=== PATIENT | male | born 1955 | race Caucasian/White ===

== ENCOUNTER → 2025-01-16 10:59 | Outpatient (REF) | payer MEDICARE, BC, SELFPAY ==
[2025-01-16 11:37] LABS: % Eosinophils 4.7 % (0-6); % Immature Granulocytes 0.7 % (0-0.5); % Lymphocytes 31.8 % (20.5-51.1); % Monocytes 7.7 % (1.7-9.3); % Neutrophils 54.1 % (42.2-75.2); Absolute Basophils 0.1 10^3/uL (0-0.2); Absolute Eosinophils 0.3 10^3/uL (0-0.7); Absolute Lymphocytes 1.9 10^3/uL (1.2-3.4); Absolute Monocytes 0.5 10^3/uL (0.1-0.6); Absolute Neutrophils 3.3 10^3/uL (1.4-6.5); Hematocrit 46.5 % (39.0-52.0); Hemoglobin 16.4 g/dL (13.0-18.0); Mean Corp Hgb Conc. 35.3 g/dL (33.0-37.0); Mean Corpuscular Hgb 31.4 pg (27.0-31.0); Mean Corpuscular Volume 89.1 fL (80.0-94.0); Mean Platelet Volume 9.7 fL (7.4-10.4); Nucleated Red Blood Cells % 0 % (-); Platelet Count 229 10^3/uL (130-400); Red Blood Cell Count 5.22 10^6/uL (4.70-6.10); Red Cell Dist. Width 13.4 % (11.5-14.5)
[2025-01-16 11:46] LABS: ALT (SGPT) 25 U/L (0-50); AST (SGOT) 21 U/L (17-59); Albumin 4.5 g/dl (3.5-5.0); Alkaline Phosphatase 61 U/L (38-126); Blood Urea Nitrogen 16 mg/dl (9-20); Calcium 9.8 mg/dl (8.4-10.2); Carbon Dioxide 24 mmol/L (22-30); Chloride 111 mmol/L (98-107); Glucose 96 mg/dl (70-99); Magnesium 2.1 mg/dl (1.6-2.3); Potassium 4.6 mmol/L (3.5-5.1); Sodium 142 mmol/L (135-145); Total Bilirubin 0.8 mg/dl (0.2-1.3); Total Protein 7.5 g/dl (6.3-8.2); eGFR > 60.00
[2025-01-16 11:49] LABS: INR 1.05
== END ==
LOC: SDSPAT 10:59
PROVIDERS: ATTENDING PHYSICIAN Internal Medicine Cardiovascular Disease; FAMILY PHYSICIAN Family Medicine; OTHER PHYSICIAN Internal Medicine Cardiovascular Disease
DX: I48.91 Unspecified atrial fibrillation (principal); I48.11 Longstanding persistent atrial fibrillation
CPT/HCPCS: 36415; 75572; 80053; 83735; 85025; 85610; 86850; 86900; 86901; 93005; Q9967

== ENCOUNTER 2025-01-26 07:57 | Day surgery (SDC) | payer MEDICARE, BC, SELFPAY ==
[2025-01-16 11:09] VITALS: BMI 34.6
--- NOTE | 2025-01-16 12:51 | HPS.HSE ---
Family Physician
-
Family Physician: NO INTERVIEW UNKNOWN
Chief Complaint
-
Persistent atrial fibrillation.
History of Present Illness
The patient is a 69 year old male presenting today for persistent atrial fibrillation. The patient reports symptoms such as fatigue, dyspnea, intermittent palpitations, and lightheadedness all likely secondary to his arrhythmia. He
previously underwent multiple HELLEN-guided cardioversions and an atrial fibrillation ablation in both 2015 and 2017 for this diagnosis. He is currently on pharmacological therapy with Metoprolol Succinate. He reports recent compliance with Eliquis for
oral anticoagulation. He notes that his current symptoms associated with his arrhythmia greatly interfere with his activities of daily living and overall impact his quality of life. He is interested in pursuing pulmonary vein isolation for more
definitive arrhythmia management. He denies any current complaints today such as chest pain, shortness of breath at rest, nausea, vomiting, diarrhea, dizziness, cough, sore throat, or fever.
Medical History
Past Medical History
Past Medical History: Reports Other
Additional Past Medical History:
1. Persistent atrial fibrillation, status post multiple cardioversions and ablation 2015 and 2016; pharmacological therapy with Metoprolol Succinate and oral anticoagulation with Eliquis.
2. Typical atrial flutter, status post ablation 07/2020.
3. Sick sinus syndrome.
4. Incomplete right bundle branch block.
5. Elevated blood pressure without diagnosis of hypertension.
6. Mild mitral regurgitation.
7. PFO on transesophageal echocardiogram 2015.
8. Mild fusiform aneurysmal dilatation of the ascending thoracic aorta, 4.2 cm.
9. Colon polyps.
10. Migraines.
11. Osteoarthritis.
12. Melanoma, status post Mohs x2.
13. Obesity, BMI 34.6.
Past Surgical History: Reports Other
Additional Past Surgical History:
1. Atrial fibrillation ablation x2.
2. Atrial flutter ablation.
3. Multiple HELLEN-guided cardioversions.
4. Mohs x2.
5. [place] tooth extraction.
6. Colonoscopy x2.
Social History
Tobacco: Non-smoker
Alcohol: None
Personal:
Living: Other (He lives in a [facility] with his . )
Family History
Family History: Not pertinent
Allergies / Home Medications
Allergy/Medication List:
Home medications:
1. Eliquis 5 mg p.o. twice a day.
2. Metoprolol Succinate 25 mg p.o. twice a day.
Allergies: No known allergies.
Review of Systems
-
A 12 point ROS was completed and negative except as noted: Yes
Physical Exam
Vital Signs
Blood pressure 140/105. Repeat blood pressure 131/100. Heart rate 75. Respirations 18. Pulse ox 96% on room air.
Height 6 feet, 0.5 inches. Weight 117.3 kg. BMI 34.6.
Physical Exam
General: Well Developed, Well Nourished and No Apparent Distress
HEENT: NormoCephalic, Moist mucous membranes, Atraumatic and PERRLA
Respiratory: Clear
Cardiac: Irregular Rhythm
GI: Soft, Non Tender, Non Distended and Other (Obese. )
Musculoskeletal: No Edema and Normal Gait & Station
Skin: Warm and Dry
Neuro: AO x 3 and Nonfocal/grossly intact
Laboratory Results
-
DIAGNOSTIC STUDIES as of 01/16/2025: White blood cell count 6.0. Hemoglobin 16.4. Platelet count 229,000. PT 14.0. INR 1.05. Sodium 142. Potassium 4.6. BUN 16. Creatinine 1.0. Glucose 96. Calcium 9.8. Magnesium 2.1. AST 21. ALT 25. Albumin 4.5. Type
and screen O positive.
EKG 01/16/2025: Atrial fibrillation with premature ventricular or aberrantly conducted complexes.
Chest CT 01/16/2025: Short segment common vestibule for the left superior and inferior pulmonary veins, fairly commonly seen and considered normal variant. No evidence for left atrial thrombus. Mild fusiform aneurysmal dilatation of the ascending
thoracic aorta measuring up to 4.2 cm.
Transesophageal echocardiogram 01/11/2016: Normal left ventricular size and systolic function. No regional wall motion abnormalities are seen. The ejection fraction is estimated at 60%. [place] were not measured but there was probable left ventricular
hypertrophy. Severely dilated left atrial appendage without thrombus. Dilated left atrium. Structurally normal mitral valve with mild regurgitation. PFO with left to right flow noted.
Impression/Plan
-
IMPRESSION/PLAN:
1. Persistent atrial fibrillation: The patient is in need of pulmonary vein isolation with Dr. Ravinder Manzano on 01/26/2025. The benefits and risks of the procedure have been explained to the patient. The patient understands these risks and wishes to
proceed. He will not be required to undergo a pre-procedural transesophageal echocardiogram as he has been compliant with his home oral anticoagulation. He is aware to continue his Eliquis up until the night prior to his procedure. He will take no
medications the morning of his ablation.
[2025-01-26] VITALS (15 sets, daily range): BP systolic 100–140; BP diastolic 71–97; BMI 34.5
[2025-01-26 11:42] LABS: ACT-LR - POC 303 Seconds (116-155)
--- NOTE | 2025-01-26 12:25 | ITS.CL.ABL ---
Imaging Technician - Ablation
Ablation
Procedure Report:
ELECTROPHYSIOLOGY ABLATION STUDY
DATE:: January 26, 2025�����������������������������REFERRING: Dr. Renny Laurent
INDICATION: Persistent supraventricular tachycardia in the form of atrial fibrillation.��Prior pulmonary vein isolation and CTI flutter ablation
HISTORY: See H and P.��As above
ANTIARRHYTHMIC DRUG: History of sotalol use limited by side effects of dyspnea
PRE-PROCEDURE HELLEN: No intracardiac thrombus on intracardiac ultrasound
PRESENTING RHYTHM: Atrial fibrillation
'TIME-OUT':��called and confirmed.
SEDATION/ANESTHESIA:��provided via the anesthesia department using general anesthesia (LMA).
INTRAVENOUS/ARTERIAL ACCESS:
Right femoral venous -8Fr
Left femoral venous - 8 Fr, 6 Fr
Wwlcun-[id number] suture bilaterally
Ultrasound guidance for bilateral femoral vein access was utilized by me to obtain access with demonstration of normal anatomy
CHADS-VASC Score:
HAS-Bled Score
PROCEDURE:
1.��A decapolar CS catheter was placed within the CS for mapping and pacing.��This was also used as the reference catheter for the 3-D map.
2. The intracardiac ultrasound catheter was positioned in the RA to identify the FO for targeting of transseptal puncture, assist��in identification of the pulmonary vein ostia, monitoring pre and post ablation pulmonary vein flow velocities,
monitoring for 'bubble' formation during RF application as a sign of thermal injury,��and to monitor for pericardial effusion during mapping and ablation procedure.���Left atrial size, LV ejection fraction, and pulmonary vein flows were monitored
pre and post ablation procedure. The other valves were inspected and found to be free of significant regurgitation or stenosis.
3.��Half of the calculated heparin bolus was administered prior to the first transeptal puncture.��Transseptal puncture was performed to diagnose RA and LA pressure so that safetey of LA mapping and ablation could be further assessed, and to access
the left atrium and pulmonary veins for mapping and ablation.��This entailed advancing an 8 Fr SL-1 sheath with dilator into the superior vena cava and withdrawing both (monitoring intracardiac ultrasound, fluoroscopy and tip pressure) with the tip
oriented toward the atrial septum.��The fossa ovalis was engaged (indicated by sudden displacement of the sheath tip as well as tenting of the fossa seen on intracardiac ultrasound).��Left atrial access required a pass with the Brockenbrough needle
extended.��Left atrial catheter position was confirmed by pressure monitoring (RA mean pressure [ ] mm Hg and LA mean presure [ ] mm Hg), LA saturation ( [ ] %),��as well as fluoroscopy.��The sheath was advanced over the dilator and positioned in
the left atrium.��This procedure was repeated for the Agilis sheath.��The remainder of the calculated heparin bolus was administered and heparin was
infused to maintain ACT at 300 -350 seconds throughout the case.
4.��RA pacing was performed via the proximal decapolar poles and LA pacing was performed via the distal decapolar poles.
5. A quadrapolar catheter was first positioned at the His position for His Bundle recording which was tagged via the 3-D Navex sytem, and then passed to the RVA for RV pacing and recording.
6. The lattice catheter was placed in each of the LIPV, LSPV, RSPV and the RIPV.��
7.��Next, a 3-D map was created using Navex.���A 3-D reconstructed CT image was compared to the 3-D Navex map to assist in anatomic interpretation, mapping and ablation.��The CT image and the NavX image were fused.
8. There is focal connection at the roof outside the left superior pulmonary vein. There was focal connection at the mid isthmus of the CTI although there was functional block with intra isthmus time of 140 ms across the isthmus. The remainder of
the pulmonary veins were isolated at baseline. Utilizing the 9 mm last catheter focal lesions at the left superior pulmonary vein and at the middle of the CTI rendered the pulmonary veins isolated and bidirectional block across the CTI at 160 ms.
A roofline, floor line and substrate based ablation in the posterior wall were performed isolating the left atrial posterior wall from the roof down to the floor.
The patient required 1 300 J synchronized biphasic shock to sinus rhythm with entrance and exit block then confirmed in all 4 pulmonary veins, entrance exit block of the posterior wall from roof to the floor and bidirectional block across the CTI
isthmus flutter line. There were no ST-T changes after focal ablation at the mid isthmus and the right atrium. As the site of ablation was greater than 1 cm back from the tricuspid annulus PFA was utilized.
9. A focal lesion at the prior IVC-TVA isthmus line to interupt the potential typical atrial flutter circuit.��At the end of RF at this site, pacing from the lateral side of the line and the medial side of the line was performed to evaluate for
bidirectional block. Intra isthmus conduction time of 160 ms bidirectionally confirmed with coronary sinus pacing
TOTAL FLOURO TIME: 12.1 minutes 123 mGy
TOTAL RF DURATION: 0 minutes
REVERSAL OF HEPARIN: 35 mg of protamine, slow IV administration
COMPLICATIONS:
None
Intracardiac US shows no pericardial effusion post ablation.
SUMMARY:��
Complex left atrial mapping and ablation.
Reisolation of the left superior pulmonary vein, focal lesion to the CTI flutter line for bidirectional block, roof and floor line with substrate ablation in the posterior wall for isolation of the posterior wall.
RECOMMENDATIONS:
1. Ambulate in 4 hours
2. Resume anticoagulation
3.��Low-dose metoprolol
4.��Given his left atrial dilation and ablation as above would consider class III antiarrhythmic drug therapy if he has arrhythmia recurrence
Copy to: Dr. Renny Laurent
--- NOTE | 2025-01-26 15:08 | W.PN.UPDATE ---
Update Note
Progress Note Update
69 yo WM s/p PVI (same day). He denies cp, sob, ari diet, EKG SR 1deg AVB, b/l groins c/d/i with F08. He will resume Eliquis tonight and continue metoprolol. Activity restrictions reviewed. He will f/u Dr. Laurent in 3 mo. He is for d/c home after
5p if groins stable and voiding.
== END 2025-01-26 17:00 | disposition home or self-care (01) ==
LOC: CATH 07:57
PROVIDERS: ATTENDING PHYSICIAN Internal Medicine Cardiovascular Disease; FAMILY PHYSICIAN Family Medicine; OTHER PHYSICIAN Internal Medicine Cardiovascular Disease
DX: I48.19 Other persistent atrial fibrillation (principal); E66.9 Obesity, unspecified; I48.3 Typical atrial flutter; I45.10 Unspecified right bundle-branch block; I47.10 Supraventricular tachycardia, unspecified; I49.8 Other specified cardiac arrhythmias; M19.90 Unspecified osteoarthritis, unspecified site; Z68.34 Body mass index [BMI] 34.0-34.9, adult; Z79.01 Long term (current) use of anticoagulants; Z79.899 Other long term (current) drug therapy; Z85.820 Personal history of malignant melanoma of skin; Z86.0100 Personal history of colon polyps, unspecified; Z98.890 Other specified postprocedural states; I34.0 Nonrheumatic mitral (valve) insufficiency; I71.21 Aneurysm of the ascending aorta, without rupture; R03.0 Elevated blood-pressure reading, without diagnosis of hypertension; G43.909 Migraine, unspecified, not intractable, without status migrainosus; Q21.12 Patent foramen ovale
CPT/HCPCS: C1733; C1894; C1730; C1766; C1892; C1759; 85347; 93005; 93655; 93656; 93657

== ENCOUNTER 2025-05-11 11:39 | Day surgery (SDC) | payer MEDICARE, BC, SELFPAY ==
[2025-05-11 12:57] VITALS: BMI 35.0
--- NOTE | 2025-05-11 15:52 | ITS.CL.CARDI ---
School Adjustment Counselor - Cardioversion
Cardioversion
Procedure Report:
Date of Procedure: May 11 2025
Procedure: Cardioversion
Indication: Symptomatic atrial fibrillation
Performing Physician: Arturo Lawson DO [facility]
Technique: The patient was brought to the holding area. Signed informed consent was obtained. A time out was called and performed. The patient was anesthetized by the anesthesia service. Anticoagulation status was reviewed and appropriate. R2 pads
were placed anteriorly and posteriorly. A 200 J synchronized biphasic shock was delivered and failed to restore sinus. A second J synchronized biphasic shock at 300 J was delivered and failed to restore sinus. A final 360 J synchronized biphasic
shock was delivered and restored normal sinus rhythm without significant bradycardia. There were no complications.
Conclusion: Uncomplicated cardioversion from atrial fibrillation to sinus rhythm.
Recommendation: Routine post cardioversion care. Continue exterminator anticoagulation.
== END 2025-05-11 15:06 | disposition home or self-care (01) ==
LOC: CATH 11:39
PROVIDERS: ATTENDING PHYSICIAN Internal Medicine Interventional Cardiology; FAMILY PHYSICIAN Family Medicine; REFERRING PHYSICIAN Internal Medicine Cardiovascular Disease
DX: I48.19 Other persistent atrial fibrillation (principal); Z79.01 Long term (current) use of anticoagulants; I48.3 Typical atrial flutter; Q21.12 Patent foramen ovale; I49.5 Sick sinus syndrome
CPT/HCPCS: 92960; 93005

== ENCOUNTER 2025-06-27 13:07 | Inpatient (IN) | payer MEDICARE, BC, SELFPAY ==
--- NOTE | 2025-06-27 13:23 | W.PN.CARDCBS ---
Addendum entered and electronically signed by Ravinder Manzano MD 06/27/25 13:59:
patient seen and examined
agree with ZACH Ruiz's note and assessment
agree with ZACH Ruiz's plan
ECG reviewed at bedside QTc <500msec
At most recent ablation LAPW isolation with PFA with focal ablation at the CTI and pulmonary veins. Did not last in sinus for more than a few days after ablation in 12/2024 or CV in 05/2025.
Exam:
Heent ncat
JVP 6
cor regular no m
lungs ctab
abd soft nt nd
no ext edema
aao x3
Assessment:
Paroxysmal atrial fibrillation, symptomatic
History of ablationx4, 2016, 2016, 2019, and 12/2024
Cardioversion 05/11/2025 with subsequent recurrence
Chronic anticoagulation with Eliquis
Sick sinus syndrome
Hypertension
Chronic right bundle branch block
Plan:
- Patient is a 70-year-old male with past medical history of ablation x 4, most recently pulsed field ablation 12/2024 with subsequent recurrence resulting in cardioversion 05/11/2025 with recurrence 3 days later, who now presents for Tikosyn loading.
Primary primary counselor is Dr. Laurent of [place] [facility] [place]. Patient reports he was on Tikosyn 500 mcg every 12 hours in past
- Awaiting labs
- As long as creatinine clearance allows, we will plan to reinitiate Tikosyn 500 mcg every 12 hours and follow QTc
- continue OP toprol
- continue eliquis, no missed doses as OP
- If remains in A-fib, will require cardioversion prior to discharge
- d/w nursing. d/w patient and at bedside
Original Note:
Today's Communication / Plan
-
Awaiting labs and EKG
Initiate Tikosyn
Follow QTc
Continue outpatient Toprol, Eliquis
Cardioversion prior to discharge if needed
Impression / Plan
-
Primary Bridal Consultant: Dr. Laurent
Primary EP: Dr. Manzano
Assessment:
Paroxysmal atrial fibrillation, symptomatic
History of ablationx4, 2016, 2017, 2019, and 12/2024
Cardioversion 05/11/2025 with subsequent recurrence
Chronic anticoagulation with Eliquis
Sick sinus syndrome
Hypertension
Chronic right bundle branch block
Plan:
- Patient is a 70-year-old male with past medical history of ablation x 4, most recently pulsed field ablation 12/2024 with subsequent recurrence resulting in cardioversion 05/11/2025 with recurrence 3 days later, who now presents for Tikosyn loading.
Primary primary counselor is Dr. Laurent of [facility] [place]. Patient reports he was on Tikosyn 500 mcg every 12 hours in past
- Awaiting labs
- As long as creatinine clearance allows, we will plan to reinitiate Tikosyn 500 mcg every 12 hours and follow QTc
- continue OP toprol
- continue eliquis, no missed doses as OP
- If remains in A-fib, will require cardioversion prior to discharge
- d/w nursing. d/w patient and at bedside
Progress Note - Bridal Consultant
Subjective
Date of Service: June 27, 2025
Reports shortness of breath with his typical of him being in atrial fibrillation. Denies chest pain
Physical Exam
Physical Exam
GEN: No distress, awake, alert, oriented x3
HEENT: supple, anicteric, mmm, EOMI
LUNGS: CTA bilaterally, no wheezes/rales
CV: Irreg, S1/S2, no murmur
ABD: soft, BS+, NT/ND
EXT: No cyanosis, clubbing, edema
NEURO: Gross non-focal
SKIN: Warm, pink, dry. No rash
[2025-06-27 13:27] VITALS: BMI 35.6
[2025-06-27 13:34] VITALS: BP 144/95
--- NOTE | 2025-06-27 13:42 | W.CARD.TIKOS ---
Initiate Tikosyn
-
I verify that the patient has not taken any verapamil (Isoptin/Calan), ketoconazole (Nizoral), cimetidine (Tagamet), trimethoprim (Trimpex), trimethoprim/sulfamethoxazole (Bactrim), megesterol (Megace), prochlorperazine (Compazine),
hydrochlorothiazide (HCTZ), dolutegravir (Tivicay) or any Class I or Class III anti-arrhythmic within the last three days
AND
I verify that the patient has not taken amiodarone within the last THREE months, or that the patient's amiodarone plasma concentration is <0.3 mcg/mL.
Does patient have a Ventricular Conduction Abnormality: No
I have assessed the baseline QTc interval (using QT for heart rate less than 60 bpm) and deemed the patient is appropriate for Dofetilide therapy. I understand that Tikosyn is contraindicated if the QTc is >440msec (500msec in patients with
ventricular conduction abnormalities).
Baseline QTc (in msec): 439
QTc interval is greater than 440msec without conduction abnormality OR greater than 500msec with a conduction abnormality, but acceptable to proceed per Cardiology attending.
Ordering Physician: Ravinder Manzano
[2025-06-27 14:06] VITALS: BMI 35.6
[2025-06-27 14:09] LABS: Hematocrit 46.4 % (39.0-52.0); Hemoglobin 16.5 g/dL (13.0-18.0); Mean Corp Hgb Conc. 35.6 g/dL (33.0-37.0); Mean Corpuscular Volume 89.9 fL (80.0-94.0); Nucleated Red Blood Cells % 0 % (-); Platelet Count 245 10^3/uL (130-400); Red Cell Dist. Width 13.1 % (11.5-14.5)
--- NOTE | 2025-06-27 14:33 | PTCARENOTE ---
Received as a direct admit into room 2243. AOx3. VSS. Afib on telemetry, HR 80s at rest, as high as 150s w/ activity. Plan of care discussed. Baseline EKG obtained. Awaiting results of labs prior to administering first dose of tikosyn.
[2025-06-27 14:36] LABS: ALT (SGPT) 35 U/L (0-50); AST (SGOT) 30 U/L (17-59); Albumin 4.3 g/dl (3.5-5.0); Alkaline Phosphatase 74 U/L (38-126); Blood Urea Nitrogen 18 mg/dl (9-20); Calcium 9.1 mg/dl (8.4-10.2); Carbon Dioxide 23 mmol/L (22-30); Chloride 108 mmol/L (98-107); Estimated Creatinine Clearance 84 ml/min; Glucose 99 mg/dl (70-99); Magnesium 2.3 mg/dl (1.6-2.3); Potassium 5.0 mmol/L (3.5-5.1); Sodium 140 mmol/L (135-145); Total Protein 7.4 g/dl (6.3-8.2); eGFR > 60.00
[2025-06-27] MEDS: TIKOSYN 500 MCG PO (14:58)
[2025-06-27 15:03] LABS: TSH 2.19 uIU/ml (0.47-4.68)
[2025-06-27 18:49] VITALS: BP 134/82
[2025-06-27] MEDS: TOPROL XL 25 MG PO (19:09)
[2025-06-27] MEDS: ELIQUIS 5 MG PO (19:09)
[2025-06-27 22:07] VITALS: BP 116/81
[2025-06-28] VITALS (7 sets, daily range): BP systolic 116–133; BP diastolic 74–97
[2025-06-28] MEDS: TIKOSYN 500 MCG PO ×3 (01:50→22:04)
--- NOTE | 2025-06-28 04:30 | PTCARENOTE ---
Pt. remains in A-fib following Tikosyn dose #2 with rate 60's-80's; QTc 471 ms. Pt. has no complaints, independent and ambulatory.
--- NOTE | 2025-06-28 07:52 | W.PN.CARDCBS ---
Today's Communication / Plan
-
continue tikosyn
follow QTc
CV in AM if remains in afib
Impression / Plan
-
Primary Assembly Line Robot Operator: Dr. Laurent
Primary EP: Dr. Manzano
Assessment:
Paroxysmal atrial fibrillation, symptomatic
History of ablationx4, 2015, 2016, 2019, and 12/2024
Cardioversion 05/11/2025 with subsequent recurrence
Chronic anticoagulation with Eliquis
Sick sinus syndrome
Hypertension
Chronic right bundle branch block
Plan:
- Patient is a 70-year-old male with past medical history of ablation x 4, most recently pulsed field ablation 12/2024 with subsequent recurrence resulting in cardioversion 05/11/2025 with recurrence 3 days later, who now presents for Tikosyn loading.
Primary bilingual kindergarten teacher is Dr. Laurent of [place] [facility] [place]. Patient reports he was on Tikosyn 500 mcg every 12 hours in past
-remains in afib with PVCs on review of tele overnight
-QTc stable on tikosyn 500mcg Q12H by review of EKG overnight, continue
-if remains in afib overnight will plan for CV in AM. NPO after midnight
-continue OP toprol
-no missed OP doses of eliquis, continue
-anticipate DC 06/29
Progress Note - Assembly Line Robot Operator
Subjective
Date of Service: June 28, 2025
denies issues overnight
Objective
Labs:
06/27/25 13:45
06/27/25 13:45
Labs
Hgb 16.5 g/dL (13.0-18.0) 06/27/25 13:45
Hct 46.4 % (39.0-52.0) 06/27/25 13:45
Plt Count 245 10^3/uL (130-400) 06/27/25 13:45
Sodium 140 mmol/L (135-145) 06/27/25 13:45
Potassium 5.0 mmol/L (3.5-5.1) 06/27/25 13:45
BUN 18 mg/dl (9-20) 06/27/25 13:45
Creatinine 1.1 mg/dL (0.7-1.3) 06/27/25 13:45
Glucose 99 mg/dl (70-99) 06/27/25 13:45
Vital Signs and I&O:
Vital Signs
Temp Pulse Resp BP Pulse Ox
97.7 F 90 20 130/97 97
06/28/25 07:17 06/28/25 07:15 06/28/25 07:17 06/28/25 07:15 06/28/25 07:17
Vital Signs
Temp Pulse Resp BP Pulse Ox
97.7 F 90 20 130/97 97
06/28/25 07:17 06/28/25 07:15 06/28/25 07:17 06/28/25 07:15 06/28/25 07:17
Intake & Output
06/25/25 06/26/25 06/27/25 06/28/25
07:59 07:59 07:59 07:59
Intake Total 480 / 480
Balance 480 / 480
Physical Exam
Physical Exam
GEN: No distress, awake, alert, oriented x3. Sitting in chair
HEENT: supple, anicteric, mmm, EOMI.
LUNGS: CTA bilaterally, no wheezes/rales
CV: Irreg, S1/S2, no murmur
ABD: soft, BS+, NT/ND
EXT: No cyanosis, clubbing, edema
NEURO: Gross non-focal
SKIN: Warm, pink, dry. No rash
[2025-06-28] MEDS: TOPROL XL 25 MG PO ×2 (08:20→20:00)
[2025-06-28] MEDS: FLUSH (NSS) 1 FLUSH IV (08:20)
[2025-06-28] MEDS: MAGNESIUM OXIDE 400 MG PO (08:20)
[2025-06-28] MEDS: ELIQUIS 5 MG PO ×2 (08:20→20:00)
--- NOTE | 2025-06-28 09:17 | PTCARENOTE ---
Patient oob this morning, remains in AF. Aware of need to be NPO tomorrow for CV if he does not convert. Due for next dose of tikosyn at noon.
--- NOTE | 2025-06-28 11:28 | CM ---
Chart reviewed. Patient is independent of ADLS, lives with his in a [address], 12 [address], 0 DME. Plan is for the patient to return home. CM to follow
--- NOTE | 2025-06-28 11:30 | CM ---
Pricing on Dofetilide 500mcq BID is covered through the patient's [facility] at $14.33 for a 30 day supply. Patient will need a 3 day supply to go home.
--- NOTE | 2025-06-28 18:25 | PTCARENOTE ---
Patient converted to SR with 1st degree HB, BBB and PVC's after 3rd dose of tikosyn. EKG done which confirmed, cardiology notified.
--- NOTE | 2025-06-28 20:47 | PTCARENOTE ---
Patient received at change of shift out of bed to the chair. Offers no complaints at this time. Sinus rhythm with first degree AVB on telemetry. Oxygen saturation 96-98% on room air. Plan of care discussed. Call roa within reach. Care ongoing.
[2025-06-29] VITALS (8 sets, daily range): BP systolic 119–152; BP diastolic 79–94
[2025-06-29] MEDS: MAGNESIUM OXIDE 400 MG PO (07:47)
[2025-06-29] MEDS: ELIQUIS 5 MG PO ×2 (07:47→19:44)
[2025-06-29] MEDS: TOPROL XL 25 MG PO ×2 (07:47→19:44)
[2025-06-29] MEDS: FLUSH (NSS) 1 FLUSH IV (07:48)
--- NOTE | 2025-06-29 07:58 | W.PN.CARDCBS ---
Addendum entered and electronically signed by Mary Bueno MD 06/29/25 14:07:
I saw and examined the patient.
The Sheet Pile Hammer Operator's note was reviewed and I agree with the note.
Comment: Did well overnight however QT interval is prolonged. Reviewed with electrophysiology. We will reduce Tikosyn dose as recommended. Discussed with patient and family at the bedside. Continue to follow telemetry. No arrhythmias noted.
Continue to follow EKGs on lower dose of Tikosyn. Hopefully discharge tomorrow.
Blood pressure is a little elevated. We will continue to follow.
Original Note:
Today's Communication / Plan
-
reduce tikosyn to 250mcg Q12H. follow QTc
check labs, replete electrolytes as needed
continue toprol, eliquis
likely observe overnight given change in tikosyn dosing
Impression / Plan
-
Primary Excel Analyst: Dr. Laurent
Primary EP: Dr. Manzano
Assessment:
Paroxysmal atrial fibrillation, symptomatic
History of ablationx4, 2016, 2017, 2019, and 12/2024
Cardioversion 05/11/2025 with subsequent recurrence
Chronic anticoagulation with Eliquis
Sick sinus syndrome
Hypertension
Chronic right bundle branch block
Plan:
- Patient is a 70-year-old male with past medical history of ablation x 4, most recently pulsed field ablation 12/2024 with subsequent recurrence resulting in cardioversion 05/11/2025 with recurrence 3 days later, who now presents for Tikosyn loading.
Primary pairer inspector is Dr. Laurent of [place] [facility] [place]. Patient reports he was on Tikosyn 500 mcg every 12 hours in past
-he converted to SR around 13:30 and has remained in SR with PVCs overnight
-QTc more prolonged this AM, reviewed with EP. check BMP/mag this AM. will reduce dose to 250mcg Q12H and observe for 2 doses.
-continue OP toprol
-continue eliquis
-likely will observe overnight and DC in AM.
-OP cardiac follow up arranged
-d/w nursing
Progress Note - Excel Analyst
Subjective
Date of Service: June 29, 2025
feeling well overnight
Objective
Labs:
06/27/25 13:45
Labs
Hgb 16.5 g/dL (13.0-18.0) 06/27/25 13:45
Hct 46.4 % (39.0-52.0) 06/27/25 13:45
Plt Count 245 10^3/uL (130-400) 06/27/25 13:45
Sodium 140 mmol/L (135-145) 06/27/25 13:45
Potassium 5.0 mmol/L (3.5-5.1) 06/27/25 13:45
BUN 18 mg/dl (9-20) 06/27/25 13:45
Creatinine 1.1 mg/dL (0.7-1.3) 06/27/25 13:45
Glucose 99 mg/dl (70-99) 06/27/25 13:45
Vital Signs and I&O:
Vital Signs
Temp Pulse Resp BP Pulse Ox
97.8 F 54 20 119/92 96
06/29/25 07:03 06/29/25 07:00 06/29/25 07:03 06/29/25 07:00 06/29/25 07:03
Vital Signs
Temp Pulse Resp BP Pulse Ox
97.8 F 54 20 119/92 96
06/29/25 07:03 06/29/25 07:00 06/29/25 07:03 06/29/25 07:00 06/29/25 07:03
Intake & Output
06/26/25 06/27/25 06/28/25 06/29/25
07:59 07:59 07:59 07:59
Intake Total 480 / 480 600 / 600
Balance 480 / 480 600 / 600
Physical Exam
Physical Exam
GEN: No distress, awake, alert, oriented x3. Sitting in chair
HEENT: supple, anicteric, mmm, EOMI.
LUNGS: CTA bilaterally, no wheezes/rales
CV: Reg, S1/S2, no murmur
ABD: soft, BS+, NT/ND
EXT: No cyanosis, clubbing, edema
NEURO: Gross non-focal
SKIN: Warm, pink, dry. No rash
[2025-06-29 09:35] LABS: Blood Urea Nitrogen 16 mg/dl (9-20); Calcium 9.4 mg/dl (8.4-10.2); Carbon Dioxide 27 mmol/L (22-30); Chloride 104 mmol/L (98-107); Estimated Creatinine Clearance 93 ml/min; Glucose 89 mg/dl (70-99); Magnesium 2.3 mg/dl (1.6-2.3); Potassium 4.5 mmol/L (3.5-5.1); Sodium 137 mmol/L (135-145); eGFR > 60.00
--- NOTE | 2025-06-29 09:40 | PTCARENOTE ---
Patient is oob ambulating in the room, remains in SR with 1st degree HB and PVC's. Dosage of next tikosyn dose which is due at 1000 lowered due to prolonged QTc.
[2025-06-29] MEDS: TIKOSYN 250 MCG PO ×2 (10:06→20:58)
--- NOTE | 2025-06-29 10:39 | CM ---
Dofetilide 250mcq in stock at the patient's [facility]. Patient will need a 3 day supply to go home.
[2025-06-29] MEDS: NON-FORMULARY ITEM 2 TABLET PO (19:26)
--- NOTE | 2025-06-29 22:22 | PTCARENOTE ---
Patient received at change of shift resting in the bed. Reports a headache at this time, PRN Excedrin given, see MAR. Patient remains sinus rhythm with a first degree AVB, PACs, and a prolonged QT on telemetry. Oxygen saturation 96% on room air.
Plan of care discussed. Call roa within reach. Care ongoing.
[2025-06-30 03:37] VITALS: BP 116/81
--- NOTE | 2025-06-30 07:30 | W.PN.CARDCBS ---
Addendum entered and electronically signed by Namrata Ruiz PA-C 06/30/25 10:53:
[id number]
Addendum entered and electronically signed by Mary Bueno MD 06/30/25 10:33:
I saw and examined the patient.
The [facility] Lead's note was reviewed and I agree with the note.
Comment: Doing well overnight without complaints. His is at the bedside. QTc stable on EKG today. Telemetry with rare PVCs which are monomorphic.
Stable for discharge home. All questions answered. He will call if issues develop.
Follow-up as noted.
Original Note:
Today's Communication / Plan
-
continue tikosyn 250mcg Q12H. QTc improved
continue toprol, eliquis
plan for DC
Impression / Plan
-
Primary Wet End Operator: Dr. Laurent
Primary EP: Dr. Manzano
Assessment:
Paroxysmal atrial fibrillation, symptomatic
History of ablationx4, 2015, 2017, 2019, and 12/2024
Cardioversion 05/11/2025 with subsequent recurrence
Chronic anticoagulation with Eliquis
Sick sinus syndrome
PVCs
Hypertension
Chronic right bundle branch block
Plan:
- Patient is a 70-year-old male with past medical history of ablation x 4, most recently pulsed field ablation 12/2024 with subsequent recurrence resulting in cardioversion 05/11/2025 with recurrence 3 days later, who now presents for Tikosyn loading.
Primary drier helper is Dr. Laurent of [facility] [place]. Patient reports he was on Tikosyn 500 mcg every 12 hours in past
-he converted to SR 06/28 and has remained in SR with occ PVCs since that time
-QTc improved with reduction in tikosyn dose to 250mcg Q12H
-continue OP toprol, eliquis
-plan for DC to home today
-OP cardiac follow up arranged
Progress Note - Wet End Operator
Subjective
Date of Service: June 30, 2025
no issues overnight
Objective
Labs:
06/27/25 13:45
06/29/25 08:51
Labs
Hgb 16.5 g/dL (13.0-18.0) 06/27/25 13:45
Hct 46.4 % (39.0-52.0) 06/27/25 13:45
Plt Count 245 10^3/uL (130-400) 06/27/25 13:45
Sodium 137 mmol/L (135-145) 06/29/25 08:51
Potassium 4.5 mmol/L (3.5-5.1) 06/29/25 08:51
BUN 16 mg/dl (9-20) 06/29/25 08:51
Creatinine 1.0 mg/dL (0.7-1.3) 06/29/25 08:51
Glucose 89 mg/dl (70-99) 06/29/25 08:51
Vital Signs and I&O:
Vital Signs
Temp Pulse Resp BP Pulse Ox
97.5 F 54 14 116/81 96
06/30/25 03:38 06/30/25 06:00 06/30/25 03:38 06/30/25 03:37 06/30/25 03:38
Vital Signs
Temp Pulse Resp BP Pulse Ox
97.5 F 54 14 116/81 96
06/30/25 03:38 06/30/25 06:00 06/30/25 03:38 06/30/25 03:37 06/30/25 03:38
Intake & Output
06/27/25 06/28/25 06/29/25 06/30/25
07:59 07:59 07:59 07:59
Intake Total 480 / 480 600 / 840 1200 / 1200
Balance 480 / 480 600 / 840 1200 / 1200
Physical Exam
Physical Exam
GEN: No distress, awake, alert, oriented x3. sitting in chair
HEENT: supple, anicteric, mmm, eomi
LUNGS: CTA B/L, no wheezes/rales
CV: Reg, S1/S2, no murmur
ABD: soft, BS+, NT/ND
EXT: No cyanosis, clubbing, edema
NEURO: Gross non-focal
SKIN: Warm, pink, dry. No rash
--- NOTE | 2025-06-30 07:34 | W.DS.TRANS ---
DC Summary - Residential Life Director
-
Discharge Instructions:
Sleep Apnea Risk Intermediate
Discharge Diagnosis/Procedures atrial fibrillation, tikosyn load
Diet As tolerated
Activity As tolerated
Driving Restrictions As prior to admission
Bathing Restrictions None
Instructions:
Stand-Alone Forms:
Changes to Home Medications: Yes
Discharge Medications:
DC Medications w/original date entered in [employer]
apixaban 5 mg tablet (Eliquis) 5 mg PO BID Blood clot prevention/tx 01/11/16
metoprolol succinate 25 mg tablet,extended release 24 hr 25 mg PO BID Blood pressure 07/27/20
ejqvchu-wabqlbtirbifh-qtgqzhta 250 mg-250 mg-65 mg tablet (Excedrin Extra Strength) 2 tab PO Q6H PRN headache 06/27/25
magnesium 200 mg tablet 400 mg PO DAILY 06/27/25
dofetilide 250 mcg capsule 250 mcg PO Q12H #60 caps 06/30/25
Home Medication Changes
tikosyn is new
Pending Results: No
[2025-06-30 07:48] VITALS: BP 135/101
[2025-06-30 07:50] VITALS: BP 128/94
[2025-06-30] MEDS: TIKOSYN 250 MCG PO (07:56)
[2025-06-30] MEDS: ELIQUIS 5 MG PO (07:56)
[2025-06-30] MEDS: MAGNESIUM OXIDE 400 MG PO (07:56)
[2025-06-30] MEDS: TOPROL XL 25 MG PO (07:56)
--- NOTE | 2025-06-30 09:35 | PTCARENOTE ---
Assumed care of the pt @0700. Pt is AAOx3 SB/SR on the monitor PACs and PVCs. VSS dose #7 toksyn given. Pt awaiting dc after seen by Cardiology.
--- NOTE | 2025-06-30 10:51 | PTCARENOTE ---
Pt was discharged to home with . Instructions given and electronic prescription sent to Pharmacy. Pt declined wheelchair escort.
== END 2025-06-30 10:56 | disposition home or self-care (01) | DRG 310 ==
LOC: IVU 13:07
PROVIDERS: Physician Assistant; ADMITTING PHYSICIAN Internal Medicine Cardiovascular Disease; FAMILY PHYSICIAN Family Medicine
DX: I48.0 Paroxysmal atrial fibrillation (principal); Z79.01 Long term (current) use of anticoagulants; I49.5 Sick sinus syndrome; I10 Essential (primary) hypertension; I45.10 Unspecified right bundle-branch block; I49.3 Ventricular premature depolarization
CPT/HCPCS: 80048; 80053; 83735; 84443; 85025; 93005

== ENCOUNTER → 2025-07-26 12:05 | Outpatient (REF) | payer MEDICARE, SELFPAY | LOC: DHSLP 12:05 | PROVIDERS: ATTENDING PHYSICIAN Nurse Practitioner; FAMILY PHYSICIAN Family Medicine | DX: G47.33 Obstructive sleep apnea (adult) (pediatric) (principal) | CPT/HCPCS: 95800 ==